=== PATIENT | male | born 1980 | race Caucasian/White ===

== ENCOUNTER 2017-02-07 08:47 | Inpatient (IN) | payer BC ==
[~2017-02-07] VITALS: Ht 175.3 cm; Wt 99.0 kg
[2017-02-07] MEDS ORDERED: HYDROCODONE/APAP (5/325) TAB PO PRN (12:30)
[2017-02-07] MEDS ORDERED: morphine 2 MG INJ IV PRN (12:30)
[2017-02-07 12:36] VITALS: BP 129/88; RESP 20
[2017-02-07 12:43] VITALS: Ht 175.3 cm; Wt 99.0 kg
[2017-02-07] MEDS: SOD CHLORIDE 0.9% 1,000 ML IV SCH ×2 (13:01→20:16)
[2017-02-07 14:16] LABS: BASOPHILS % 0.2 % (0.0-2.0); EOSINOPHILS # 0.1 10^3/ul (0.0-0.5); EOSINOPHILS % 0.3 % (0.0-7.0); HEMATOCRIT 41.1 % (42.0-52.0); HEMOGLOBIN 13.6 g/dl (14.0-18.0); LYMPHOCYTES # 0.8 10^3/ul (0.8-2.9); LYMPHOCYTES % 5.6 % (15.0-51.0); MEAN CORPUSCULAR HEMOGLOBIN 28.9 pg (29.0-33.0); MEAN CORPUSCULAR HGB CONC 33.1 g/dl (32.0-37.0); MEAN CORPUSCULAR VOLUME 87.3 fl (82.0-101.0); MEAN PLATELET VOLUME 11.2 fl (7.4-10.4); MONOCYTE # 0.6 10^3/ul (0.3-0.9); MONOCYTES % 3.8 % (0.0-11.0); NEUTROPHIL # 13.4 10^3/ul (1.6-7.5); NEUTROPHILS % 89.7 % (39.0-77.0); PLATELET COUNT 226 10^3/UL (140-415); RED BLOOD COUNT 4.71 10^6/ul (4.70-6.10); RED CELL DISTRIBUTION WIDTH 12.9 % (11.5-14.5); WHITE BLOOD COUNT 14.9 10^3/ul (4.8-10.8)
[2017-02-07 14:35] LABS: INR 0.99; PROTIME 13.1 Sec (12.2-14.2)
[2017-02-07 14:38] LABS: ALBUMIN 3.8 g/dl (3.3-4.9); ALBUMIN/GLOBULIN RATIO 1.02; AMYLASE 310 U/L (11-123); BILIRUBIN,INDIRECT 0.4 mg/dl (0-1.1); BILIRUBIN,TOTAL 0.4 mg/dl (0.2-1.3); CALCIUM 8.6 mg/dl (8.4-10.2); CREATININE 0.62 mg/dl (0.61-1.24); POTASSIUM 4.9 mmol/L (3.5-5.1); TOTAL PROTEIN 7.5 g/dl (6.1-8.1)
[2017-02-07] MEDS: ONDANSETRON 4 MG INJ IV PRN ×2 (15:44→22:21)
[2017-02-07] MEDS: HYDROmorphONE 1 MG/ML SYG IV PRN ×2 (15:45→22:21)
--- NOTE | 2017-02-07 15:55 | QN ---
Documentation Comment H AND P DONE SMILEY LEYVA MD Feb 07, 2017 15:55
--- NOTE | 2017-02-07 16:56 | HP ---
DATE OF ADMISSION: 02/07/2017 REASON FOR ADMISSION: Transfer from [facility] for acute pancreatitis. HISTORY OF PRESENT ILLNESS: This is a 36-year-old male without any known past medical history who presented to [facility] in ED today complaining of abdominal pain for past 5 days. According to the patient, he has been having intermittent epigastric generalized abdominal pain for the last 5 days. The pain had been waxing and waning. He thought that probably he ate sushi and after that, he started having this worse pain. He described the pain as intense cramping, radiating to the back. The patient was worse last night and he came to the emergency department at [facility]. The patient said that probably he had this pain like 10 years ago. Denied any melena or hematochezia. Denies any NSAID use. Denies any alcohol use. No history of any gallstones. The patient was seen at [facility] and given morphine, GI cocktail. Lipase was 500 and a white count of 14,000 and the patient was given IV fluids, morphine, and was sent in due to insurance reason, not sure if the abdominal ultrasound was done. PAST MEDICAL HISTORY: None. Per family, patient does not eat healthy. ALLERGIES: NONE. PAST SURGICAL HISTORY: None. SOCIAL HISTORY: Denies any history of smoking, alcohol or any drug use. FAMILY HISTORY: No history of any liver disease in the family. REVIEW OF SYSTEMS: The patient complains of severe epigastric pain associated with some nausea, vomiting. Denied any diarrhea. Denied any hematemesis and melena, had some sweats. Denied any headache, any blurry vision. Denies any chest pain, any shortness of breath, any lower extremity edema. Denies any focal neurological deficits. PHYSICAL EXAMINATION: VITAL SIGNS: Temperature 98.8, heart rate 69, respirations 20, blood pressure 129/88. GENERAL: The patient is awake, alert, oriented x4, appears to be in mild distress secondary to pain, having an episode of vomiting. HEENT: Pupils equal, round, reactive to light. No scleral icterus. NECK: Supple, no JVD. HEART: Regular rate and rhythm. LUNGS: Clear to auscultate bilaterally. ABDOMEN: The patient has tenderness present in the epigastric region, soft, no rebound, guarding. No peritoneal signs. EXTREMITIES: No clubbing , cyanosis or edema. NEUROLOGIC: Nonfocal. DIAGNOSTIC DATA: BMP within normal limits. AST 23, ALT 54, alkaline phosphatase 100, albumin 3.8, amylase 310, lipase 4809. White count 14.9, hemoglobin 13.6, platelet count 226. INR 1.0. ASSESSMENT AND PLAN: This is a 36-year-old male presenting with: 1. Acute pancreatitis with elevated lipase and epigastric pain. At this period of time, the patient denies any alcohol use. There is no history of gallstones. Hypertriglyceridemia is also a possibility given the patient's intake of fat. 2. Leukocytosis, could be secondary to #1. 3. Obesity. PLAN: At this period of time, the patient will be admitted to med/surg unit. The patient will be started on NS at 150 mL an hour. Will give the patient pain control with Dilaudid , Zofran for nausea. We will follow up with serial amylase and lipase. Abdominal ultrasound will be ordered. I have called Dr. Sims for GI consultation. Dictated By: SMILEY HUNG/MEET Conf#: [id number] DID#: [id number] MTDD
[2017-02-07] MEDS: PANTOPRAZOLE 40 MG INJ IV SCH (17:07)
--- NOTE | 2017-02-07 18:05 | RADRPT ---
PROCEDURE: US Abdomen (right upper quadrant). CLINICAL INDICATION: Right upper quadrant abdomen pain. TECHNIQUE: Multiple real-time longitudinal and transverse images of the right upper quadrant of th e abdomen were acquired utilizing a curved array transducer. Images were reviewed on a high-resoluti on PACS workstation. COMPARISON: None FINDINGS: The liver is normal in size and diffusely increased in echogenicity. There is no focal hepatic lesion. Color Doppler and pulsed Doppler sonography demonstrate normal a ntegrade flow in the portal vein. The gallbladder is normal with no stones or wall thickening. There is no pericholecystic fluid uriah ection. The bile ducts are normal with the common bile duct measuring 4.6 mm in diameter. The visualized portions of the pancreas are unremarkable with obscuration of the tail of the pancrea s. No free fluid is present. The right kidney measures 10.8 x 5.7 x 5.3 cm. There is normal echogenicity of the right kidney. There is no perinephric fluid collection. No hydronephrosis, mass, or calculus is seen. IMPRESSION: 1. Fatty metamorphosis of the liver. 2. Otherwise normal right upper quadrant abdomen ultrasound. RPTAT: QQ .Narendra Santiago MD, MD Date Time Electronically viewed and signed by .Narendra Santiago MD, on 02/07/2017 18:05 .R/
--- NOTE | 2017-02-07 18:08 | CONS ---
DATE OF ADMISSION: 02/07/2017 DATE OF CONSULTATION: TYPE OF CONSULTATION: Gastroenterology. Dear Dr. Leyva: Thank you for asking me to see Mr. Robb in GI consultation. HISTORY OF PRESENT ILLNESS: The patient, as you know, is a 36-year-old [place] gentleman who is ad mitted to the hospital because of history of abdominal pain which he has been having for the past 4 days. Initially he went to the emergency room at [facility], where he had elevated amylase and lipase and also ultrasound showed evidence of cholelithiasis. Because of insurance reasons, the paola pierre was transferred to this hospital. Patient is feeling better and also because he has been rece iving pain medications. He has nausea, but no vomiting, no GI bleeding, no fever, no jaundice. PAST MEDICAL HISTORY: He has no history of abdominal pain. PAST SURGICAL HISTORY: No surgeries in the past. SOCIAL HISTORY: The patient does not smoke or drink. FAMILY HISTORY: Unremarkable. PHYSICAL EXAMINATION: GENERAL: The patient is a 36-year-old [place] gentleman who at this time is alert, well built. He is mildly obese. VITAL SIGNS: On exam, temperature 98, pulse 69, blood pressure 129/88. CARDIOVASCULAR: Normal heart sounds. RESPIRATORY: Normal breath sounds. ABDOMEN: Showed obese abdomen, no significant tenderness. LABORATORY WORKUP: WBC count is 14,900, hemoglobin 13.6, platelet count 226,000. Neutrophils 89. The coagulation shows INR of 0.99. The ultrasound done in [place] showed evidence of sludge, gallbladder stones. Again, as far as the laboratory functions are concerned, his lipase is elevated. The lipase is arou nd 300 to 400 in [facility], but the labs are pending at this time at [facility]. Lip ase was more than 400 at 1 point. Alkaline phosphatase is 96, ALT 39, AST 22, bilirubin 0.9. These are all from [facility]. CLINICAL IMPRESSION: The patient appears to have gallstone pancreatitis and certainly one should ru le out the possibility of choledocholithiasis. PLAN: At this time, recommend MRCP. Continue symptomatic management. Once again, Doctor, thank you for this consultation. Dictated By: CHACE BARRY/MEET Conf#: [id number] DID#: [id number] CC: SMILEY LEYVA; DAVID PHIPPS MD;*[facility]*
[2017-02-07 19:38] VITALS: BP 105/57; RESP 20
[2017-02-08 01:37] VITALS: BP 118/68; RESP 20
[2017-02-08] MEDS: SOD CHLORIDE 0.9% 1,000 ML IV SCH ×5 (03:23→21:14)
[2017-02-08] MEDS: PANTOPRAZOLE 40 MG INJ IV SCH ×2 (05:26→17:48)
[2017-02-08] MEDS: HYDROmorphONE 1 MG/ML SYG IV PRN ×5 (05:33→23:04)
[2017-02-08] MEDS: METOCLOPRAMIDE 10 MG INJ IV PRN ×2 (05:33→23:04)
[2017-02-08 06:17] LABS: BASOPHILS % 0.1 % (0.0-2.0); EOSINOPHILS # 0.1 10^3/ul (0.0-0.5); EOSINOPHILS % 0.6 % (0.0-7.0); HEMATOCRIT 38.2 % (42.0-52.0); HEMOGLOBIN 12.9 g/dl (14.0-18.0); LYMPHOCYTES # 1.2 10^3/ul (0.8-2.9); LYMPHOCYTES % 6.8 % (15.0-51.0); MEAN CORPUSCULAR HEMOGLOBIN 29.5 pg (29.0-33.0); MEAN CORPUSCULAR HGB CONC 33.8 g/dl (32.0-37.0); MEAN CORPUSCULAR VOLUME 87.4 fl (82.0-101.0); MEAN PLATELET VOLUME 11.9 fl (7.4-10.4); MONOCYTES % 5.9 % (0.0-11.0); NEUTROPHIL # 14.9 10^3/ul (1.6-7.5); NEUTROPHILS % 86.1 % (39.0-77.0); PLATELET COUNT 222 10^3/UL (140-415); RED BLOOD COUNT 4.37 10^6/ul (4.70-6.10); RED CELL DISTRIBUTION WIDTH 12.9 % (11.5-14.5); WHITE BLOOD COUNT 17.3 10^3/ul (4.8-10.8)
[2017-02-08 06:36] LABS: CHOL/HDL RATIO 4.7 RATIO; MAGNESIUM 1.7 mg/dl (1.7-2.5); PHOSPHORUS 3.4 mg/dl (2.5-4.9)
[2017-02-08 06:39] LABS: ALBUMIN 3.4 g/dl (3.3-4.9); ALBUMIN/GLOBULIN RATIO 1.03; BILIRUBIN,INDIRECT 0.5 mg/dl (0-1.1); BILIRUBIN,TOTAL 0.5 mg/dl (0.2-1.3); CALCIUM 9.1 mg/dl (8.4-10.2); CREATININE 0.67 mg/dl (0.61-1.24); POTASSIUM 4.3 mmol/L (3.5-5.1); TOTAL PROTEIN 6.7 g/dl (6.1-8.1)
[2017-02-08 07:43] VITALS: BP 109/62; RESP 19
[2017-02-08 07:46] LABS: AMYLASE 111 U/L (11-123)
--- NOTE | 2017-02-08 09:37 | PN ---
Date/Time of Note Date/Time of Note DATE: 02/08/17 TIME: 09:36 Assessment/Plan VTE Prophylaxis VTE Prophylaxis Intervention: ambulation Lines/Catheters IV Catheter Type (from Nrs): Saline Lock Assessment/Plan Chief Complaint/Hosp Course 1. Acute pancreatitis with elevated lipase and epigastric pain. 2. Leukocytosis, could be secondary to #1. 3. Obesity. Problems: Assessment/Plan 1. NPO 2. Keep IV fluids 3. Pain control 4. MRI pending 5. Start on a/b Meropenem Subjective 24 Hr Interval Summary Gastrointestinal: pain Exam/Review of Systems Vital Signs Vitals Vital Signs Date Time Temp Pulse Resp B/P Pulse Ox O2 Delivery O2 Flow Rate FiO2 02/08/17 07:43 99.4 86 19 109/62 92 Intake and Output 02/07/17 02/07/17 02/08/17 15:00 23:00 07:00 Intake Total 1000 ml 1225 ml Output Total 800 ml 400 ml Balance 200 ml 825 ml Exam Constitutional: alert, oriented Respiratory: clear to auscultation Cardiovascular: regular rate and rhythm Gastrointestinal: rebound or guarding (epigastric area), soft Results Result Diagram: 02/08/17 0520 02/08/17 0520 Results 24 hrs Laboratory Tests Test 02/07/17 13:48 02/08/17 05:20 White Blood Count 14.9 H 17.3 H Red Blood Count 4.71 4.37 L Hemoglobin 13.6 L 12.9 L Hematocrit 41.1 L 38.2 L Mean Corpuscular Volume 87.3 87.4 Mean Corpuscular Hemoglobin 28.9 L 29.5 Mean Corpuscular Hemoglobin Concent 33.1 33.8 Red Cell Distribution Width 12.9 12.9 Platelet Count 226 222 Mean Platelet Volume 11.2 H 11.9 H Neutrophils % 89.7 H 86.1 H Lymphocytes % 5.6 L 6.8 L Monocytes % 3.8 5.9 Eosinophils % 0.3 0.6 Basophils % 0.2 0.1 Nucleated Red Blood Cells % 0.0 0.0 Neutrophils # 13.4 H 14.9 H Lymphocytes # 0.8 1.2 Monocytes # 0.6 1.0 H Eosinophils # 0.1 0.1 Basophils # 0.0 0.0 Nucleated Red Blood Cells # 0.0 0.0 Prothrombin Time 13.1 Prothrombin Time Ratio 1.0 INR International Normalized Ratio 0.99 Sodium Level 138 139 Potassium Level 4.9 4.3 Chloride Level 104 103 Carbon Dioxide Level 26 27 Anion Gap 13 13 Blood Urea Nitrogen 10 10 Creatinine 0.62 0.67 Glucose Level 191 124 # Calcium Level 8.6 9.1 Total Bilirubin 0.4 0.5 Direct Bilirubin 0.00 0.00 Indirect Bilirubin 0.4 0.5 Aspartate Amino Transf (AST/SGOT) 23 19 Alanine Aminotransferase (ALT/SGPT) 54 42 Alkaline Phosphatase 100 89 Total Protein 7.5 6.7 Albumin 3.8 3.4 Globulin 3.70 H 3.30 H Albumin/Globulin Ratio 1.02 1.03 Amylase Level 310 H 111 # Lipase 4809 H 470 H Phosphorus Level 3.4 Magnesium Level 1.7 Triglycerides Level 109 Cholesterol Level 160 LDL Cholesterol, Calculated 104 HDL Cholesterol 34 Cholesterol/HDL Ratio 4.7 Medications Medications Current Medications Sodium Chloride (NS) 1,000 ml @ 150 mls/hr Q6H40M IV Last administered on 03:23; Admin Dose 150 MLS/HR; Start 02/07/17 at 12:30 Ondansetron HCl (Zofran Inj) 4 mg Q6H PRN IV NAUSEA AND/OR VOMITING Last administered on 02/07/17 22:21; Admin Dose 4 MG; Start 02/07/17 at 12:30 Acetaminophen/ Hydrocodone Bitart ([place] (5/325)) 1 tab Q4H PRN PO PAIN; Start 02/07/17 at 12:30 Hydromorphone HCl (Dilaudid) 1 mg Q4H PRN IV pain Last administered on 05:33; Admin Dose 1 MG; Start 02/07/17 at 16:00 Metoclopramide HCl (Reglan) 10 mg Q6H PRN IV NAUSEA Last administered on 05:33; Admin Dose 10 MG; Start 02/07/17 at 16:00 Pantoprazole (Protonix Iv) 40 mg BID@06,18 IV Last administered on 02/08/17 05:26; Admin Dose 40 MG; Start 02/07/17 at 18:00 PAL SEVERINO Feb 08, 2017 09:37
[2017-02-08] MEDS: ONDANSETRON 4 MG INJ IV PRN ×3 (09:54→18:06)
[2017-02-08] MEDS ORDERED: PIPER-TAZO 3.375 GM IV (PMX) 50 ML IVPB SCH (12:00)
[2017-02-08] MEDS ORDERED: MEROPENEM 2 GM in SOD CHLORIDE 0.9% 100 ML IVPB SCH (12:00)
[2017-02-08] MEDS: MEROPENEM 1 GM/50ML(PMX) 50 ML IVPB SCH ×2 (12:24→22:19)
[2017-02-08] MEDS ORDERED: LORAZEPAM 2 MG INJ IV ONE (14:30)
--- NOTE | 2017-02-08 15:52 | RADRPT ---
PROCEDURE: MRCP. CLINICAL INDICATION: Elevated liver function tests. TECHNIQUE: MRCP was performed. The following sequences were obtained: Three plane gradient echo localizers, coronal gradient echo images, breath hold axial T2-weighted fat saturation images, chadd nal T2-weighted images, axial 3-D LAVA images, axial T2-weighted breath hold fast spin echo images, and 3-D coronal rotating MIP images of the biliary tree. COMPARISON: Right upper quadrant abdomen ultrasound dated 02/07/2017. FINDINGS: There are small bilateral pleural effusions. The liver is normal in size. There is normal signal intensity within the liver. There is no focal hepatic lesion. The spleen is normal in size and homogeneous in signal intensity. There are no gallstones in the gallbladder. The biliary tree is not dilated. No intrahepatic nor extrahepatic biliary dilatation is present. The pancreatic duct is grossly normal. The kidneys are grossly normal. The abdominal aorta is not dilated. IMPRESSION: 1. Small bilateral pleural effusions. 2. Otherwise unremarkable MRCP. RPTAT: QQ .Narendra Santiago MD, MD Date Time Electronically viewed and signed by .Narendra Santiago MD, on 02/08/2017 15:52 .R/
[2017-02-08 15:58] VITALS: BP 121/69; RESP 20
[2017-02-08 16:21] LABS: BARBITURATES Negative (NEGATIVE); BENZODIAZEPINES Negative (NEGATIVE); CANNABINOIDS Negative (NEGATIVE); COCAINE Negative (NEGATIVE); OPIATES Positive (NEGATIVE)
[2017-02-08] MEDS ORDERED: IPRATROPIUM (NEB) 0.5 MG/2.5 ML AMP HHN PRN (17:00)
[2017-02-08] MEDS ORDERED: ALBUTEROL/IPRATROPIUM (NEB) 3 ML AMP HHN PRN (17:00)
[2017-02-08] MEDS ORDERED: ACETAMINOPHEN 325 MG TAB PO PRN (17:30)
[2017-02-08 19:34] VITALS: BP 102/50; RESP 20
--- NOTE | 2017-02-08 20:33 | RADRPT ---
PROCEDURE: XR Chest. CLINICAL INDICATION: pleural effusion on mri TECHNIQUE: Single frontal view of the chest. COMPARISON: None. FINDINGS: The heart is normal in size. There are scattered areas of subsegmental atelectasis in the lungs. No focal consolidations, large p leural effusion, or pneumothorax is seen. The osseous structures are grossly unremarkable. IMPRESSION: 1. Scattered areas of subsegmental atelectasis in the lungs. 2. No focal consolidations or large pleural effusions. RPTAT:AAJJ Physician Ch[place]orta Date Time Electronically viewed and signed by Liseth Lujan Physician on 02/08/2017 20:33 QL/
[2017-02-09] MEDS: SOD CHLORIDE 0.9% 1,000 ML IV SCH (01:03)
[2017-02-09 02:05] VITALS: BP 117/70; RESP 20
[2017-02-09] MEDS: HYDROmorphONE 1 MG/ML SYG IV PRN ×3 (04:55→18:33)
[2017-02-09] MEDS: ONDANSETRON 4 MG INJ IV PRN ×3 (04:55→18:31)
[2017-02-09] MEDS: PANTOPRAZOLE 40 MG INJ IV SCH ×2 (05:23→17:34)
[2017-02-09] MEDS: MEROPENEM 1 GM/50ML(PMX) 50 ML IVPB SCH ×3 (05:23→22:18)
[2017-02-09 06:15] LABS: BASOPHILS % 0.3 % (0.0-2.0); EOSINOPHILS # 0.4 10^3/ul (0.0-0.5); EOSINOPHILS % 2.3 % (0.0-7.0); HEMATOCRIT 37.2 % (42.0-52.0); HEMOGLOBIN 12.4 g/dl (14.0-18.0); LYMPHOCYTES # 1.5 10^3/ul (0.8-2.9); LYMPHOCYTES % 9.9 % (15.0-51.0); MEAN CORPUSCULAR HEMOGLOBIN 29.3 pg (29.0-33.0); MEAN CORPUSCULAR HGB CONC 33.3 g/dl (32.0-37.0); MEAN CORPUSCULAR VOLUME 87.9 fl (82.0-101.0); MEAN PLATELET VOLUME 11.7 fl (7.4-10.4); MONOCYTE # 1.1 10^3/ul (0.3-0.9); MONOCYTES % 6.9 % (0.0-11.0); NEUTROPHIL # 12.4 10^3/ul (1.6-7.5); NEUTROPHILS % 80.1 % (39.0-77.0); PLATELET COUNT 213 10^3/UL (140-415); RED BLOOD COUNT 4.23 10^6/ul (4.70-6.10); RED CELL DISTRIBUTION WIDTH 12.8 % (11.5-14.5); WHITE BLOOD COUNT 15.4 10^3/ul (4.8-10.8)
[2017-02-09 06:28] LABS: ALBUMIN 3.5 g/dl (3.3-4.9); ALBUMIN/GLOBULIN RATIO 1.02; AMYLASE 36 U/L (11-123); BILIRUBIN,INDIRECT 0.6 mg/dl (0-1.1); BILIRUBIN,TOTAL 0.6 mg/dl (0.2-1.3); CALCIUM 8.5 mg/dl (8.4-10.2); CREATININE 0.68 mg/dl (0.61-1.24); POTASSIUM 3.7 mmol/L (3.5-5.1); TOTAL PROTEIN 6.9 g/dl (6.1-8.1)
--- NOTE | 2017-02-09 06:53 | PN ---
DATE: 02/08/2017 SUBJECTIVE: At this time, patient seen by me because of gallstone pancreatitis. The patient says his abdominal pain is a little better. He has been under sedation and he is not ab le to communicate thoroughly. PHYSICAL EXAMINATION: GENERAL: The patient is alert, not in distress. VITAL SIGNS: Temperature is 100, blood pressure 121/69, pulse is 96%. CARDIOVASCULAR: Normal heart sounds. RESPIRATORY: Normal breath sounds. ABDOMEN: Showed unremarkable findings. Very minimal epigastric tenderness. LABORATORY FUNCTIONS: Show WBC count 17,300, hemoglobin 12.9. The amylase is 111. Lipase is 470. Yesterday, the lipase was 4809. MRI showed evidence of no gallstones, no biliary ductal dilatation , no common duct stones. CLINICAL IMPRESSION: The patient of the gallstone pancreatitis. White count is elevated. I will continue antibiotic therapy, continue to observe very closely, continue to give IV fluids. Dictated By: CHACE BARRY/MEET Conf#: [id number] DID#: [id number] CC: SMILEY LEYVA;*EndCC*
[2017-02-09 07:26] VITALS: BP 128/74; RESP 18
--- NOTE | 2017-02-09 10:42 | PN ---
Date/Time of Note Date/Time of Note DATE: 02/09/17 TIME: 10:38 Assessment/Plan VTE Prophylaxis VTE Prophylaxis Intervention: other Lines/Catheters IV Catheter Type (from Nrs): Peripheral IV Central line still needed: No Urinary Cath still in place: No Assessment/Plan Chief Complaint/Hosp Course 36 y/o with # Acute pancreatititis ? passed a stone, no alcholol use, Triglyceride normal # SOB due to pulm edema on fluids # Leukocytosis likely due to #1 Plan - Clears, abdominal pain resolving and lipase normal - Pain control - dc fluids - c/w meropenam - MRCP negative for gall stones - spoke to dr carter Problems: Subjective 24 Hr Interval Summary Free Text/Dictation +Sob +Abdominal pain improving Exam/Review of Systems Vital Signs Vitals Vital Signs Date Time Temp Pulse Resp B/P Pulse Ox O2 Delivery O2 Flow Rate FiO2 02/09/17 09:26 Nasal Cannula 2.0 02/09/17 07:26 98.4 75 18 128/74 96 Intake and Output 02/08/17 02/08/17 02/09/17 15:00 23:00 07:00 Intake Total 825 ml 1050 ml 650 ml Output Total 700 ml Balance 825 ml 1050 ml -50 ml Exam Gen: Awake,alert, obese Neck:supple Lungs: few crackles b/l Abdomen:soft, some TTP Ext : no edema Results Result Diagram: 02/09/17 0529 02/09/17 0528 Results 24 hrs Laboratory Tests Test 02/08/17 15:30 02/09/17 05:28 02/09/17 05:29 Urine Opiates Screen Positive Urine Barbiturates Negative Urine Amphetamines Screen Negative Urine Benzodiazepines Screen Negative Urine Cocaine Screen Negative Urine Cannabinoids Negative Sodium Level 140 Potassium Level 3.7 Chloride Level 102 Carbon Dioxide Level 29 Anion Gap 13 Blood Urea Nitrogen 9 Creatinine 0.68 Glucose Level 135 Calcium Level 8.5 Total Bilirubin 0.6 Direct Bilirubin 0.00 Indirect Bilirubin 0.6 Aspartate Amino Transf (AST/SGOT) 27 Alanine Aminotransferase (ALT/SGPT) 43 Alkaline Phosphatase 96 Total Protein 6.9 Albumin 3.5 Globulin 3.40 H Albumin/Globulin Ratio 1.02 Amylase Level 36 Lipase 105 White Blood Count 15.4 H Red Blood Count 4.23 L Hemoglobin 12.4 L Hematocrit 37.2 L Mean Corpuscular Volume 87.9 Mean Corpuscular Hemoglobin 29.3 Mean Corpuscular Hemoglobin Concent 33.3 Red Cell Distribution Width 12.8 Platelet Count 213 Mean Platelet Volume 11.7 H Neutrophils % 80.1 H Lymphocytes % 9.9 L Monocytes % 6.9 Eosinophils % 2.3 Basophils % 0.3 Nucleated Red Blood Cells % 0.0 Neutrophils # 12.4 H Lymphocytes # 1.5 Monocytes # 1.1 H Eosinophils # 0.4 Basophils # 0.0 Nucleated Red Blood Cells # 0.0 Medications Medications Current Medications Ondansetron HCl (Zofran Inj) 4 mg Q6H PRN IV NAUSEA AND/OR VOMITING Last administered on 02/09/17 04:55; Admin Dose 4 MG; Start 02/07/17 at 12:30 Acetaminophen/ Hydrocodone Bitart ([place] (5/325)) 1 tab Q4H PRN PO PAIN; Start 02/07/17 at 12:30 Hydromorphone HCl (Dilaudid) 1 mg Q4H PRN IV pain Last administered on 04:55; Admin Dose 1 MG; Start 02/07/17 at 16:00 Metoclopramide HCl (Reglan) 10 mg Q6H PRN IV NAUSEA Last administered on 23:04; Admin Dose 10 MG; Start 02/07/17 at 16:00 Pantoprazole 40 mg 40 mg BID@06,18 IV Last administered on 02/09/17 05:23; Admin Dose 40 MG; Start 02/07/17 at 18:00 Meropenem/Sodium Chloride (Merrem 1 Gm/50 ml (Pmx)) 50 ml @ 100 mls/hr Q8 IVPB Last administered on 02/09/17 05:23; Admin Dose 100 MLS/HR; Start 02/08/17 at 12:00 Acetaminophen (Tylenol Tab) 650 mg Q4H PRN PO PAIN AND OR ELEVATED TEMP Last administered on 02/08/17 17:49; Admin Dose 650 MG; Start 02/08/17 at 17:30 SMILEY LEYVA MD Feb 09, 2017 10:42
[2017-02-09 14:16] VITALS: BP 131/71; RESP 18
[2017-02-09 19:38] VITALS: BP 123/68; RESP 20
[2017-02-09] MEDS ORDERED: BARIUM SULF 2% 450 ML BTL (BERRY SMOOTHIE) PO ONE (20:00)
[2017-02-10 02:01] VITALS: BP 111/62; RESP 20
[2017-02-10 05:42] LABS: BASOPHILS % 0.4 % (0.0-2.0); EOSINOPHILS # 0.4 10^3/ul (0.0-0.5); EOSINOPHILS % 4.1 % (0.0-7.0); HEMATOCRIT 38.3 % (42.0-52.0); HEMOGLOBIN 13.2 g/dl (14.0-18.0); LYMPHOCYTES # 1.9 10^3/ul (0.8-2.9); LYMPHOCYTES % 17.9 % (15.0-51.0); MEAN CORPUSCULAR HEMOGLOBIN 29.7 pg (29.0-33.0); MEAN CORPUSCULAR HGB CONC 34.5 g/dl (32.0-37.0); MEAN CORPUSCULAR VOLUME 86.3 fl (82.0-101.0); MEAN PLATELET VOLUME 11.3 fl (7.4-10.4); MONOCYTE # 0.7 10^3/ul (0.3-0.9); MONOCYTES % 6.3 % (0.0-11.0); NEUTROPHIL # 7.3 10^3/ul (1.6-7.5); NEUTROPHILS % 70.9 % (39.0-77.0); PLATELET COUNT 257 10^3/UL (140-415); RED BLOOD COUNT 4.44 10^6/ul (4.70-6.10); RED CELL DISTRIBUTION WIDTH 12.5 % (11.5-14.5); WHITE BLOOD COUNT 10.3 10^3/ul (4.8-10.8)
[2017-02-10] MEDS: MEROPENEM 1 GM/50ML(PMX) 50 ML IVPB SCH ×3 (05:53→21:33)
[2017-02-10] MEDS: PANTOPRAZOLE 40 MG INJ IV SCH ×2 (05:54→17:45)
--- NOTE | 2017-02-10 06:07 | PN ---
DATE: 02/09/2017 HISTORY OF PRESENT ILLNESS: The patient seen by me because of pancreatitis. The patient at this time still continues to have upper epigastric pain, no nausea, no vomiting. PHYSICAL EXAMINATION: GENERAL: The patient is alert, well built. VITAL SIGNS: Today, he is afebrile, temperature 98.9, blood pressure 131/71, pulse is 96. ABDOMEN: Showed minimal epigastric tenderness. LABORATORY WORKUP: WBC count is 15,400, hemoglobin 12.4. Chemistry shows AST 27, ALT 43, alkaline phosphatase 96, amylase normal 36, lipase normal of 105. CLINICAL IMPRESSION: The patient is recovering from gallstone pancreatitis; however, the patient co ntinues to have pain and leukocytosis and because of this, I would recommend CAT scan of the abdomen . Dictated By: CHACE BARRY/MEET Conf#: [id number] DID#: [id number] CC: SMILEY LEYVA;*EndCC*
[2017-02-10 06:09] LABS: ALBUMIN 3.5 g/dl (3.3-4.9); ALBUMIN/GLOBULIN RATIO 0.85; BILIRUBIN,INDIRECT 0.4 mg/dl (0-1.1); BILIRUBIN,TOTAL 0.4 mg/dl (0.2-1.3); CALCIUM 9.2 mg/dl (8.4-10.2); CREATININE 0.75 mg/dl (0.61-1.24); POTASSIUM 3.5 mmol/L (3.5-5.1); TOTAL PROTEIN 7.6 g/dl (6.1-8.1)
[2017-02-10 06:11] LABS: MAGNESIUM 2.1 mg/dl (1.7-2.5); PHOSPHORUS 3.1 mg/dl (2.5-4.9)
[2017-02-10 07:32] VITALS: BP 120/76; RESP 18
[2017-02-10] MEDS ORDERED: SOD CHLORIDE 0.9% 100 ML ONE (08:13)
[2017-02-10] MEDS ORDERED: IOHEXOL 300MG/ML 150 ML BTL ONE (08:13)
[2017-02-10] MEDS: ONDANSETRON 4 MG INJ IV PRN (08:16)
[2017-02-10] MEDS: HYDROmorphONE 1 MG/ML SYG IV PRN (08:16)
--- NOTE | 2017-02-10 10:20 | RADRPT ---
PROCEDURE: CT ABDOMEN AND PELVIS WITH IV CONTRAST. CLINICAL INDICATION: Abdominal pain and pancreatitis TECHNIQUE: CT scan of the abdomen and pelvis without contrast was performed on a multidetector hig h-resolution CT scanner following the use of IV contrast. 100 cc Omnipaque-300 was administered. Cor onal and sagittal reformatted images were obtained from the axial source images. Images were reviewe d on a high-resolution PACS workstation. The total exam CTDI equals 21.9 mGy and the total exam DLP equals 1489.2 mGy-cm. One or more of the following dose reduction techniques were used: Automated exposure control. Adjustment of the mA and/or kV according to patient size. Use of iterative reconstruction technique. DICOM images are available. COMPARISON: MRI abdomen / MRCP February 08, 2017 FINDINGS: CT abdomen: Bilateral lower lobe atelectasis is noted. The heart size is enlarged. There is no significant peric ardial effusion. Hepatic morphology is within normal limits. No gross masses or lesions. Gallbladder is unremarkable. No evidence of intrahepatic or extrahepatic biliary dilatation. The spleen is mildly enlarged. The pancreas is enlarged and there is peripancreatic fat stranding, c onsistent with acute pancreatitis. No evidence of focal fluid collections. There is homogeneous enha ncement of the pancreas. Both adrenal glands are within normal limits. Both kidneys are normal anatomic position. No obstruction or hydronephrosis. No gross renal/ureteric calculi. The visualized GI tract demonstrate mild inflammation of the adjacent duodenum. Normal caliber loops of small and large bowel noted. No obstruction. The appendix is within normal limits. The aorta is unremarkable. There is retroperitoneal lymphadenopathy. CT pelvis: The bladder is partially collapsed. The prostate is normal size. Rectosigmoid colon is within limits . No significant free fluid. No significant pelvic lymphadenopathy. The visualized osseous structures, appears to be within normal limits. IMPRESSION: 1. MILDLY ENLARGED PANCREAS WITH PERIPANCREATIC FAT STRANDING, CONSISTENT WITH ACUTE PANCREATITIS. N o evidence of necrosis. No gross focal fluid collections. 2. The gallbladder appears to be within normal limits. 3. Bilateral lower lobe atelectasis and small pleural effusions. 4. Borderline splenomegaly. 5. No evidence of bowel obstruction. The appendix is within normal limits. RPTAT: AAPP Concha Arvizu, Physician Date Time Electronically viewed and signed by Concha Arvizu Physician on 02/10/2017 10:19 JL/
--- NOTE | 2017-02-10 12:54 | PN ---
Date/Time of Note Date/Time of Note DATE: 02/10/17 TIME: 12:51 Assessment/Plan VTE Prophylaxis VTE Prophylaxis Intervention: contraindicated Lines/Catheters [facility] Saline Lock Urinary Cath still in place: No Assessment/Plan Chief Complaint/Hosp Course 36 y/o with # Acute pancreatititis ? passed a stone, no alcholol use, Triglyceride normal # Acute SOB due to pulm edema on fluids resolved # Leukocytosis likely due to #1 Plan - CT A+P + Pancreatitis, no gall stones - CLD - Advance to full liquids as tolerated - WBC improved to 10 and Lipase normalised - Pain control - c/w meropenam - spoke to dr carter Problems: Subjective 24 Hr Interval Summary Free Text/Dictation Denies any abdominal pain No nausea/vomting Has swelling under ears for long time Exam/Review of Systems Vital Signs Vitals Vital Signs Date Time Temp Pulse Resp B/P Pulse Ox O2 Delivery O2 Flow Rate FiO2 02/10/17 07:32 98.7 80 18 120/76 92 02/09/17 10:53 Nasal Cannula 2.0 Intake and Output 02/09/17 02/09/17 02/10/17 15:00 23:00 07:00 Intake Total 350 ml 590 ml 50 ml Balance 350 ml 590 ml 50 ml Exam Gen: Awake,alert, obese, fullness under ears b/l Neck:supple Lungs: clear Abdomen:soft, some TTP Ext : no edema Results Result Diagram: 02/10/17 0502 02/10/17 0502 Results 24 hrs Laboratory Tests Test 02/10/17 05:02 White Blood Count 10.3 # Red Blood Count 4.44 L Hemoglobin 13.2 L Hematocrit 38.3 L Mean Corpuscular Volume 86.3 Mean Corpuscular Hemoglobin 29.7 Mean Corpuscular Hemoglobin Concent 34.5 Red Cell Distribution Width 12.5 Platelet Count 257 # Mean Platelet Volume 11.3 H Neutrophils % 70.9 Lymphocytes % 17.9 Monocytes % 6.3 Eosinophils % 4.1 Basophils % 0.4 Nucleated Red Blood Cells % 0.0 Neutrophils # 7.3 Lymphocytes # 1.9 Monocytes # 0.7 Eosinophils # 0.4 Basophils # 0.0 Nucleated Red Blood Cells # 0.0 Sodium Level 143 Potassium Level 3.5 Chloride Level 102 Carbon Dioxide Level 32 H Anion Gap 13 Blood Urea Nitrogen 13 Creatinine 0.75 Glucose Level 100 Calcium Level 9.2 Phosphorus Level 3.1 Magnesium Level 2.1 Total Bilirubin 0.4 Direct Bilirubin 0.00 Indirect Bilirubin 0.4 Aspartate Amino Transf (AST/SGOT) 28 Alanine Aminotransferase (ALT/SGPT) 54 Alkaline Phosphatase 122 H Total Protein 7.6 Albumin 3.5 Globulin 4.10 H Albumin/Globulin Ratio 0.85 Lipase 65 Medications Medications Current Medications Ondansetron HCl (Zofran Inj) 4 mg Q6H PRN IV NAUSEA AND/OR VOMITING Last administered on 02/10/17 08:16; Admin Dose 4 MG; Start 02/07/17 at 12:30 Acetaminophen/ Hydrocodone Bitart ([place] (5/325)) 1 tab Q4H PRN PO PAIN; Start 02/07/17 at 12:30 Hydromorphone HCl (Dilaudid) 1 mg Q4H PRN IV pain Last administered on 08:16; Admin Dose 1 MG; Start 02/07/17 at 16:00 Metoclopramide HCl (Reglan) 10 mg Q6H PRN IV NAUSEA Last administered on 23:04; Admin Dose 10 MG; Start 02/07/17 at 16:00 Pantoprazole 40 mg 40 mg BID@06,18 IV Last administered on 02/10/17 05:54; Admin Dose 40 MG; Start 02/07/17 at 18:00 Meropenem/Sodium Chloride (Merrem 1 Gm/50 ml (Pmx)) 50 ml @ 100 mls/hr Q8 IVPB Last administered on 02/10/17 05:53; Admin Dose 100 MLS/HR; Start 02/08/17 at 12:00 Acetaminophen (Tylenol Tab) 650 mg Q4H PRN PO PAIN AND OR ELEVATED TEMP Last administered on 02/08/17 17:49; Admin Dose 650 MG; Start 02/08/17 at 17:30 SMILEY LEYVA MD Feb 10, 2017 12:54
[2017-02-10 14:00] VITALS: BP 118/60; RESP 18
[2017-02-10 19:59] VITALS: BP 122/70; RESP 18
[2017-02-11 01:55] VITALS: BP 124/74; RESP 18
[2017-02-11] MEDS: PANTOPRAZOLE 40 MG INJ IV SCH (05:28)
[2017-02-11] MEDS: MEROPENEM 1 GM/50ML(PMX) 50 ML IVPB SCH (05:29)
--- NOTE | 2017-02-11 06:33 | PN ---
DATE: 02/10/2017 MEDICAL HISTORY: At this time the patient feels a lot better. No abdominal pain, no nausea, no vom iting. PHYSICAL EXAMINATION: VITAL SIGNS: Temperature 98.5, blood pressure is 118/60. CARDIOVASCULAR: Normal heart sounds. RESPIRATORY: Normal breath sounds. ABDOMEN: Less tender. LABORATORY WORKUP: WBC count 10,300, hemoglobin 13.2, potassium 3.5, lipase is 65, alkaline phospha tase is 122. CLINICAL IMPRESSION: Resolved pancreatitis, probably due to passage of the gallstones. PLAN: At this time, recommend to advance the diet as tolerated. Dictated By: CHACE BARRY/MEET Conf#: [id number] DID#: [id number] CC: SMILEY LEYVA;*EndCC*
[2017-02-11 07:15] VITALS: BP 113/69; RESP 16
--- NOTE | 2017-02-11 13:39 | PDOCDIS ---
Discharge Instructions DIAGNOSIS Discharge Diagnosis Acute pancreatitis CONDITION Patient Condition: Fair HOME CARE INSTRUCTIONS: Diet Instructions: Low Fat /Cholesterol ACTIVITY: Activity Restrictions: Slowly Increase Activity FOLLOW UP/APPOINTMENTS Follow-up Plan f/u PCP in 2 weeks Avoid fatty food Return to ER if has severe abdominal pain, vomiting, fevers and chills SMILEY LEYVA MD Feb 11, 2017 13:39
[2017-02-11] MEDS ORDERED: HYDR-3498 PO (13:40)
[2017-02-11] MEDS ORDERED: ONDA-43 PO (13:42)
--- NOTE | 2017-02-12 05:45 | DS ---
DATE OF ADMISSION: 02/07/2017 DATE OF DISCHARGE: 02/11/2017 HISTORY OF PRESENTING ILLNESS AND HOSPITAL COURSE: This is a 36-year-old male without any known pas t medical history, presented to [facility] in ED complaining of abdominal pain for past day 5 d ays. The patient's pain had been waxing and waning. He thought that he probably ate sushi. After that, he had worse pain. The patient's pain was intense cramping radiating to the back. He was tra nsferred from [place] for insurance reasons. Denied any melena or hematochezia, bright red blood per rectum. Denied any NSAID use. No history of any gallstones on admission. At [place], lipase was 5 00. White count was 14,000. The patient was given IV fluids, morphine and sent in due to insurance reason. The patient was admitted to med/surg unit, kept n.p.o., started on IV fluids. However, on admission, the lipase went up to 4800. Patient was having excruciating pain and was kept on IV Dil audid. Next day, the patient's white count went up to 17.3. The patient had an abdominal ultrasoun d that showed fatty morphosis of the liver, otherwise normal right upper quadrant ultrasound. Patie nt had denied history of alcohol abuse completely. The patient was seen by GI consultation with Dr. Sims who thought that the patient probably had gallstones. Also had an abdominal MRI that showed small bilateral effusions, otherwise unremarkable MRCP. Also had a CT of the abdomen and pelvis th at showed mildly enlarged pancreas with peripancreatic fat stranding consistent with acute pancreati tis. No gross fluid collections. Gallbladder appeared to be normal limits. Bilateral lower lobe a telectasis, small pleural effusions. No evidence of bowel obstruction. However, patient was clinic ally feeling better every day. The patient developed some pulmonary edema due to fluids. Fluids we re stopped. However, the next day, patient was feeling much better and was started on clear liquids , advanced to full and then started on regular diet, which he tolerated well without any nausea and vomiting. White count came down to 10.3. Patient denied any abdominal pain. Lipase was down to 65 and currently patient is stable to be discharged home as per GI recommendations. FINAL DISCHARGE DIAGNOSES: 1. Acute pancreatitis, per GI likely secondary to passed gallstone. 2. Acute shortness of breath due to pulmonary edema, resolved. 3. Leukocytosis secondary to #1, resolved. 4. Obesity. DISCHARGE INSTRUCTIONS: 1. The patient was instructed to follow up with PCP in about 1 to 2 weeks. 2. Prescription was written for Vicodin 1 tab p.o. q. 4 p.r.n. pain for only 10 and also Zofran 4 m g p.o. q. 4 p.r.n. nausea, vomiting, only 10. The patient was instructed to return to the ER if he has severe abdominal pain, nausea, vomiting, fevers or chills. Dictated By: SMILEY HUNG/MEET Conf#: [id number] DID#: [id number]
== END 2017-02-11 15:00 | disposition home or self-care (01) | DRG 438 ==
LOC: MS2 12:11 → EDBD 12:11
PROVIDERS: ADMIT Internal Medicine; ATTEND Internal Medicine
DX: K85.10 Biliary acute pancreatitis without necrosis or infection (principal); J81.0 Acute pulmonary edema; E66.9 Obesity, unspecified; Z68.32 Body mass index [BMI] 32.0-32.9, adult
CPT/HCPCS: 71010; 74177; 74181; 76705; 80053; 80061; 80307; 82150; 83690; 83735; 84100; 85025; 85610; 86735; 87040; 94664; G0431; C9113; J1170; J2060; J2185; J2405; J2765; J7030; Q9967

== ENCOUNTER 2018-07-14 12:08 | Emergency (ER) | payer BC ==
[~2018-07-14] VITALS: Ht 175.3 cm; Wt 100.5 kg
[~2018-07-14 12:08] MED LIST: HYDR-3601 PO; ONDA4TAB13 PO
[2018-07-14 12:10] VITALS: Ht 175.3 cm; Wt 100.5 kg
[2018-07-14] MEDS ORDERED: ONDANSETRON (ODT) 4 MG TAB ODT STA (12:56)
[2018-07-14] MEDS ORDERED: HYDROmorphONE 2 MG/ML SYG IM STA (12:56)
--- NOTE | 2018-07-14 13:02 | ERD ---
ER Documentation Chief Complaint Chief Complaint BACK PAIN/INJURY HPI 37-year-old male presents with complaint of lower back pain radiating down his left leg. States that started yesterday when he was walking. Denies any injury or trauma. States that his never had history of back pain. States that he took a [place] 10 early this morning but did not help the pain at all. He is requesting stronger pain medication. He denies being ambulatory. Denies saddle numbness, incontinence, pain worse at night or when supine, weight loss, night sweats, fatigue, focal neurological defecits, recent bacterial infection, IV drug use, or immunosuppression. Denies past medical history. Denies allergies. Denies surgeries. Denies ETOH, drug, or tobacco use. ROS All systems reviewed and are negative except as per history of present illness. Medications Home Meds Active Scripts Ibuprofen* (Motrin*) 600 Mg Tab, 600 MG PO Q6 for pain, #30 TAB Prov:LAURENCE WATT 07/14/18 Prednisone* (Prednisone*) 20 Mg Tab, 60 MG PO DAILY for inflammation for 4 Days, TAB Prov:LAURENCE WATT 07/14/18 Oxycodone HCl/Acetaminophen (Percocet 5-325 mg Tablet) 1 Each Tablet, 1-2 EACH PO Q6 for pain, #10 TAB Prov:LAURENCE WATT 07/14/18 Ondansetron Hcl* (Zofran*) 4 Mg Tab, 4 MG PO Q4H PRN for NAUSEA AND OR VOMITING for 3 Days, TAB Prov:SMILEY LEYVA MD 02/11/17 Hydrocodone Bit-Acetaminophen (Hydrocodone Bit-APAP) 5-325MG Tablet, 1 TAB PO Q4H PRN for PAIN for 10 Days, #10 TAB Prov:SMILEY LEYVA MD 02/11/17 Allergies Allergies: Coded Allergies: No Known Allergy (Unverified , 07/14/18) PMhx/Soc History of Surgery: No Anesthesia Reaction: No Hx Neurological Disorder: No Hx Respiratory Disorders: No Hx Cardiac Disorders: No Hx Psychiatric Problems: No Hx Miscellaneous Medical Probl: No Hx Substance Use: No Hx Tobacco Use: No FmHx Family History: No diabetes, No coronary disease, No other Physical Exam Vitals Vital Signs Date Temp Pulse Resp B/P (MAP) Pulse Ox O2 O2 Flow FiO2 Time Delivery Rate 07/14/18 98.6 68 18 132/70 100 12:10 (90) Physical Exam Const: No acute distress Head: Atraumatic Eyes: Normal Conjunctiva ENT: Normal External Ears, Nose and Mouth. Neck: Full range of motion. No meningismus. Resp: Clear to auscultation bilaterally Cardio: Regular rate and rhythm, no murmurs Abd: Soft, non tender, non distended. Normal bowel sounds Skin: No petechiae or rashes Back: No midline or flank tenderness. No bony deformities or step-offs noted. Physical exam is limited due to patient's nonambulatory status. Ext: No cyanosis, or edema. Lower leg strength intact. Distal sensation and lower extremities intact. Distal pulses and lower extremities intact. Normal lower extremity Refill. Neur: Awake and alert Psych: Normal Mood and Affect Results 24 hrs Current Medications Medications Dose Sig/Sharda Start Time Status Last (Trade) Ordered Route PRN Stop Time Admin Dose Reason Admin 1 mg ONCE STAT 07/14/18 DC 07/14/18 Hydromorphone IM 12:56 13:16 HCl 07/14/18 13:00 (Dilaudid) Ondansetron 8 mg ONCE STAT 07/14/18 DC 07/14/18 HCl (Zofran ODT 12:56 13:16 Odt) 07/14/18 13:00 Prednisone 60 mg ONCE ONCE 07/14/18 DC 07/14/18 (Prednisone) PO 13:30 13:16 07/14/18 13:31 Procedures/MDM DIAGNOSTIC IMAGING REPORT Patient: DIMA BACON : 1980 Age: 37 Sex: M MR #: [id number] DOS: 07/14/18 1256 Ordering MD: LAURENCE WATT Location: [facility] Room/Bed: PROCEDURE: CT L-Spine. CLINICAL INDICATION: Back pain with left lower extremity radiculopathy TECHNIQUE: A CT of the lumbar spine was performed on a iPierian 64-slice CT scanner utilizing high-resolution thin section axial images from the thoracic lumbar junction through the lumbar sacral junction. Sagittal and coronal and multiplanar reformatted images were made.The CTDIvol is 37.21 mGy and the DLP is 1119.4 mGycm. DICOM images are available. One or more of the following dose reduction techniques were utilized: 1.) Automated exposure control 2.) Adjustment of the mA +/- kV according to patient's size 3.) Use of iterative reconstruction technique. COMPARISON: CT 02/10/2017 FINDINGS: No evidence of fracture. No loss of vertebral body height. Straightening of the normal lordosis without vertebral body subluxation. No acute or significant abnormality of the paravertebral soft tissues detected At L4-L5 there is a 6 mm left foraminal disc extrusion and mild endplate osteophytic ridging which contributes to moderate to severe stenosis of the left neural foramen with impingement of the exiting L4 nerve root (series 4 image 68 and sagittal image 52). No significant spinal stenosis in the remaining levels of the lumbar spine. IMPRESSION: At L4-L5 there is a moderate-sized left foraminal disc extrusion which contributes to moderate to severe stenosis of the left neural foramen with impingement of the exiting L4 nerve root on the left. Findings likely contribute to patient's reported history of left lower extremity radiculopathy. No fracture of the lumbar spine. Straightening of the normal lordosis may be positional or related to muscle spasm. RPTAT: XX Physician Tamela Date Time Electronically viewed and signed by Physician Tamela on 07/14/2018 13:57 RF/ CC: LAURENCE WATT [phone] Lumbar CT was performed due to patient's acute complaint of pain in herniated disc was noted in the L4-L5 region. I explained to patient that he needs to follow-up with orthopedist within 24 hours and patient agreed. I have low suspicion for epidural abscess, cauda equina, abdominal aortic aneurysm, pyelonephritis, aortic dissection, spinal fracture, or other emergent conditions based on patient history and exam findings. Patient discharged with short course of prednisone, as well as ibuprofen and Percocet for high acuity of pain. Patient advised to make sure to eat foods while taking the steroids and the ibu profen. Patient told if they experience leg weakness or numbness, or incontinence they need to return to the ER immediately. Patient discharged with strict ER precautions. Patient advised to follow up with PMD. All questions answered at discharge. Departure Diagnosis: Primary Impression: Back pain Back pain location: low back pain Chronicity: acute Back pain laterality: left Sciatica presence: with sciatica Sciatica laterality: sciatica of left side Qualified Codes: M54.42 - Lumbago with sciatica, left side Additional Impression: Herniated disc Spinal region: lumbar Qualified Codes: M51.26 - Other intervertebral disc displacement, lumbar region Condition: Stable LAURENCE WATT Jul 14, 2018 13:02
[2018-07-14] MEDS ORDERED: predniSONE 20 MG TAB PO ONE (13:30)
[2018-07-14] MEDS ORDERED: OXYC-279 PO (14:08)
[2018-07-14] MEDS ORDERED: PRED20TA PO (14:08)
[2018-07-14] MEDS ORDERED: IBUP-1542 PO (14:08)
[2018-07-14 14:27] VITALS: BP 122/78; PULSE 68; RESP 18
== END 2018-07-14 14:29 | disposition home or self-care (01) ==
LOC: FTE 12:08
DX: M54.42 Lumbago with sciatica, left side (principal); M51.26 Other intervertebral disc displacement, lumbar region
CPT/HCPCS: 72131; 96372; J1170; J7512; Z7502; Z7610